=== PATIENT | male | born 1970 | race Caucasian/White ===

== ENCOUNTER 2022-09-16 08:36 | Emergency (ER) | payer OTHER, BC ==
[2022-09-16] VITALS (16 sets, daily range): BP systolic 130–176; BP diastolic 85–109
[~2022-09-16] VITALS: Ht 177.8 cm; Wt 91.0 kg
[~2022-09-16 08:36] MED LIST: LORTAB 7.57.5 MG PO; MEDDOSEPAK PO; MOBIC15 MG PO
[2022-09-16] MEDS ORDERED: NAPROXEN500 MG PO (13:39)
[2022-09-16] MEDS ORDERED: CYCLOBENZAPRINE10 MG PO (13:39)
== END 2022-09-16 13:55 | disposition home or self-care (01) | DRG 563 ==
LOC: ED 08:36
DX: S39.012A Strain of muscle, fascia and tendon of lower back, initial encounter (principal); X50.9XXA Other and unspecified overexertion or strenuous movements or postures, initial encounter; F17.200 Nicotine dependence, unspecified, uncomplicated